=== PATIENT | male | born 1965 | race Caucasian/White ===

== ENCOUNTER → 2019-10-26 14:35 | Outpatient (CLI) | payer OTHER, SELFPAY ==
[2019-10-26 15:29] LABS: Prostate Specific Antigen Scrn 1.83 ng/mL (0.1-4.0)
== END ==
PROVIDERS: Visit Provider Student in an Organized Health Care Education/Training Program
DX: R35.1 Nocturia (principal)
CPT/HCPCS: G0103

== ENCOUNTER → 2020-06-13 13:12 | Outpatient (CLI) | payer OTHER, SELFPAY ==
[2020-06-14 12:33] LABS: COVID19 Sendout Not Detected (Not Detect)
== END ==
PROVIDERS: Visit Provider Physician Assistant
DX: Z11.59 Encounter for screening for other viral diseases (principal)
CPT/HCPCS: 87635

== ENCOUNTER 2020-06-16 09:10 | Day surgery (SDC) | payer OTHER, SELFPAY ==
[2020-06-16 09:24] VITALS: BP 142/82; PULSE 66; RESP 16; TEMP 37.1; O2SAT 99; BMI 25.0
[2020-06-16] MEDS: LACTATED RINGERS 1,000 ML 200 ML IV (09:24)
--- NOTE | 2020-06-16 10:24 | PM.HP.1 ---
History of Present Illness History of Present Illness Date Patient Seen: 06/16/20 Time Patient Seen: 10:20 Chief complaint: SDC Narrative: The patient is a gentleman here for screening colonoscopy. This is his 1st exam. Is no family history of colon cancer. Patient History Family & Social History Social History: household members spouse Tobacco & Substance use: Smoking Status Never smoker alcohol intake frequency a few times a week Substance Use Type does not use Meds Home Medications and Allergies Home Medications Medication Instructions Recorded Confirmed Type doxylamine succinate 25 mg PO BEDTIME PRN 06/16/20 06/16/20 History Allergies Allergy/AdvReac Type Severity Reaction Status Date / Time No Known Drug Allergies Allergy Verified 06/16/20 09:18 Review of Systems Review of Systems ROS: Yes All systems reviewed with the patient and are negative except as otherwise documented Exam Vital Signs (past 8 hours): - 06/16/20 09:24 Temperature 98.7 F Pulse Rate 66 Respiratory Rate 16 Blood Pressure 142/82 H Pulse Oximetry 99 Oxygen Delivery Method Room Air Narrative Exam Narrative: Pleasant cooperative patient no apparent distress. Lungs are clear to auscultation. No rales or rhonchi. Heart regular rate and rhythm no murmur gallop. Abdomen is soft nontender without mass. No obvious hernias. Patient is alert and oriented x3. Assessment & Plan Assessment & Plan narrative: The patient for a screening colonoscopy. I have discussed the procedure with them. Risks of bleeding, perforation which would necessitate major operation, failure to find remove all lesions, the potential tattoo were all discussed. All questions were answered. They wished to proceed.
--- NOTE | 2020-06-16 10:25 | PM.PREOP ---
Pre-operative Note COVID-19 COVID-19 status: Negative Result date/Date tested (Pos, Neg/Pending): 06/13/20 Interval Note History & Physical reviewed/Exam performed by Physician: Yes Changes to H&P: No ASA Class (for procedural sedation): I
[2020-06-16] MEDS: MIDAZOLAM 5 MG/5 ML VIAL IV (10:33)
[2020-06-16] MEDS: fentaNYL 250 MCG/5 ML INJ IV (10:33)
[2020-06-16 10:52] VITALS: BP 111/74; PULSE 60; RESP 15; TEMP 36.2; O2SAT 97
--- NOTE | 2020-06-16 10:55 | PM.OP.ENDO ---
Operative Date/Time/Diagnoses Date of procedure: 06/16/20 Time of procedure: 10:55 Pre-op diagnosis: Screening exam. This is his 1st colonoscopy. He is 55 years of age. No family history colon cancer. Post-op diagnosis: same Procedure & Clinicians Study performed: Colonoscopy Same procedure as scheduled: Yes Indications: Screening due to age Surgeon: Alvin Thompson Procedure Notes SCOAP/Timeout: Performed Procedure in detail: The patient was placed in the left lateral decubitus position and underwent IV sedation directed by the surgeon consisting of fentanyl and Versed. Digital exam was unremarkable. His prostate is flat.. The scope was inserted and advanced through the rectum into the sigmoid, descending, transverse, and ascending colon. No lesions were seen.. The cecum was reached identified by the ileocecal valve and the appendiceal opening. The ileocecal valve was successfully cannulated. The terminal ileum was normal in appearance. The scope was gradually brought out. No Polyps were found. The scope ultimately was retroflexed in the rectum. The appearance was[remarkable for some fairly large hemorrhoids which were somewhat irritated. No thrombosis. No ulcerations.]. The scope was removed and the patient tolerated the procedure well. The prep was very good. Specimen(s): none sent Complications: none Impression: Normal exam Post-procedure Recommendations: Colonscopy in 10 years Follow up: as needed Disposition: PACU
[2020-06-16 10:57] VITALS: BP 112/79; PULSE 62; RESP 15; O2SAT 94
[2020-06-16 11:03] VITALS: BP 119/78; PULSE 65; RESP 12; O2SAT 94
[2020-06-16 11:15] VITALS: BP 114/75; PULSE 62; RESP 18; TEMP 36.8; O2SAT 98
== END 2020-06-16 11:29 | disposition home or self-care (01) ==
PROVIDERS: PCP Student in an Organized Health Care Education/Training Program; Referring Provider Specialist; Visit Provider Specialist
PROC: 0DJD8ZZ Inspection of Lower Intestinal Tract, Via Natural or Artificial Opening Endoscopic (ICD-10-PCS; CPT 45378; principal; 2020-06-16 10:15)
DX: Z12.11 Encounter for screening for malignant neoplasm of colon (principal)
CPT/HCPCS: 45378; J2250; J3010

== ENCOUNTER → 2020-11-24 15:50 | Outpatient (ROUT) | payer OTHER, SELFPAY ==
[2020-11-24 16:05] LABS: Hematocrit 37.7 % (41-53); Hemoglobin 12.1 g/dL (13.5-17.5); Mean Corpuscular HGB Conc 32.1 % (30-36); Mean Corpuscular Hemoglobin 26.5 PG (26-34); Mean Corpuscular Volume 82.5 fL (80-100); Platelet Count 289 X10^3/uL (150-400); Red Blood Cell Count 4.57 X10^6/uL (4.5-5.9); Red Cell Distribution Width 20.6 % (11.6-14.8); White Blood Cell Count 4.8 X10^3/uL (4.5-11.0)
[2020-11-24 16:27] LABS: Alanine Aminotransferase 20 IU/L (<50); Albumin 4.5 g/dL (3.5-5.0); Albumin Globulin Ratio 1.6 (1.0-2.8); Alkaline Phosphatase 55 U/L (38-126); Aspartate Aminotransferase 30 IU/L (17-59); Bilirubin Total 0.4 mg/dL (0.2-1.3); Blood Urea Nitrogen 21 mg/dL (9-20); Calcium 9.8 mg/dL (8.4-10.2); Carbon Dioxide 29 mmol/L (22-32); Chloride 103 mmol/L (98-107); Cholesterol 227 mg/dL (140-199); Estimated Glomerular Filt Rate > 60.0 mL/min (>60); Globulin 2.9 g/dL (1.7-4.1); Glucose 89 mg/dL (70-100); HEMOLYSIS < 15 (0-50); Potassium 4.6 mmol/L (3.4-5.1); Sodium 137 mmol/L (137-145); Total Protein 7.4 g/dL (6.3-8.2); Triglycerides 35 mg/dL (35-150)
[2020-11-24 16:42] LABS: HDL Cholesterol 116 mg/dL (40-60); LDL Cholesterol Calculated 104 mg/dL (<100)
== END ==
PROVIDERS: PCP Student in an Organized Health Care Education/Training Program; Visit Provider Student in an Organized Health Care Education/Training Program
DX: Z00.00 Encounter for general adult medical examination without abnormal findings (principal); E78.00 Pure hypercholesterolemia, unspecified
CPT/HCPCS: 80053; 80061; 85027

== ENCOUNTER → 2020-12-22 15:22 | Outpatient (CLI) | payer OTHER, SELFPAY ==
--- NOTE | 2021-01-13 08:46 | PM.CARDMON.1 ---
Physicians Assistant Report Referral & Results Date Patient Seen: 12/22/20 Requesting provider: Shauna Cisneros Indication: Palpitations Duration of monitoring (days): 8 Diary information: There were 21 patient triggered events and 18 patient diary entries Patient triggered events were associated with (within 45 seconds) sinus rhythm, PACs, PVCs, and SVT Patient diary events were associated with, within 45 seconds, the same 4 dysrhythmias as above Data: Minimum heart rate identified was 47 beats per minute at 06:26 on 12/30/2020 Maximum sinus heart rate was 139 beats per minute at 19:40 on 12/27/2020 Maximum overall heart rate was 156 beats per minute at 15:45 on 12/29/2020 during a 12 beat run of SVT/atrial tachycardia Approximately 23.8% of identified beats were supraventricular ectopic in origin which classifies them as frequent Less than 1% of identified beats were ventricular ectopic in origin which classifies them as rare There were 3 runs of SVT the fastest run noted above was also the longest run Impression: A day school lunch monitor showing frequent PACs Patient events were associated with multiple dysrhythmias including very rare very brief runs of SVT Overall given the frequency of PACs, this would be the most likely etiology for patient's sense of palpitations Clinical correlation suggested
== END ==
PROVIDERS: PCP Student in an Organized Health Care Education/Training Program; Referring Provider Student in an Organized Health Care Education/Training Program; Visit Provider Student in an Organized Health Care Education/Training Program
DX: R00.2 Palpitations (principal)
CPT/HCPCS: 93242; 93244